=== PATIENT | male | born 1945 | race Caucasian/White ===

== ENCOUNTER 2019-09-11 18:36 | Emergency (ER) | payer OTHER, MEDICARE ==
--- NOTE | 2019-09-11 19:31 | EDM.PDOC ---
ED HPI GENERAL MEDICAL PROBLEM - General Chief Complaint: Syncope Stated Complaint: POSSIBLE STROKE Time Seen by Provider: 09/11/19 19:02 Source of Information: Reports: Patient, Family () History Limitations: Reports: Other (Patient weak, confused, poor historian. Most of hx per .) - History of Present Illness INITIAL COMMENTS - FREE TEXT/NARRATIVE: Mr. Tolbert is a pleasant 73-year-old gentleman with a past medical history significant for CHF with a 15-20% LVEF and atrial fibrillation, status-post 3 cardiac ablations and an AICD, on Coumadin and amiodarone, who now presents the ED after suffering a near-syncopal episode. The patient's tells me that the 2 of them attended a memorial service under a tent, lasting about 2 to [address] home, the patient's states that the patient appeared to start panting. She states that he sort of leaned forward with his mouth open, staring. The episode lasted about 30 seconds. He then recovered, but a short while later, he then slumped over, although she states that he did not appear to actually fully passed out, because he was wearing a seatbelt, he did not actually fall over. The patient states that he felt hot and dyspneic. He denies having felt any chest pain or palpitations. He did not feel an electric shock. No nausea or diaphoresis. No abdominal pain. No prior similar symptoms. Here in the ED, the patient's initial BP is found to be low at 86/64, otherwise, he is not tachycardic, he is afebrile, saturating 91% on room air. Other than today's event, the patient denies recent fever, chills, sore throat, ear pain, nasal or sinus congestion, cough, chest pain, palpitations, nausea, vomiting, constipation, diarrhea, abdominal pain, urinary symptoms, recent weight gain or weight loss, recent bloody bowel movements or black bowel movements, recent joint aches, headaches, or rashes. The patient's PCP is Dr. Dulce Marley at the [facility]. His Answerer is Dr. Ej Josue, at [facility]. His EP Answerer is Dr. Pako Roberts, at [facility]. Chest Pain Score (Numeric/FACES): 4 - Related Data Allergies Allergy/AdvReac Type Severity Reaction Status Date / Time No Known Allergies Allergy Verified 09/11/19 18:49 Home Meds: Home Meds Amiodarone [Cordarone] 400 mg PO DAILY 09/11/19 [History] Cholecalciferol (Vitamin D3) [Vitamin D3] 1 tab PO BID 09/11/19 [History] Digoxin 125 mcg PO DAILY 09/11/19 [History] Finasteride 5 mg PO DAILY 09/11/19 [History] Isosorbide Mononitrate [Imdur] 30 mg PO DAILY 09/11/19 [History] Metoprolol Tartrate 25 mg PO DAILY 09/11/19 [History] Multivitamin 1 tab PO DAILY 09/11/19 [History] Pantoprazole [ProTONIX] 40 mg PO DAILY 09/11/19 [History] Potassium Chloride 20 meq PO TID 09/11/19 [History] Torsemide 80 mg PO BID 09/11/19 [History] Warfarin [Coumadin] 2.5 mg PO ASDIRECTED 09/11/19 [History] Warfarin [Coumadin] 5 mg PO MOWEFR 09/11/19 [History] atorvaSTATin [Lipitor] 40 mg PO BEDTIME 09/11/19 [History] lisinopriL [Lisinopril] 5 mg PO DAILY 09/11/19 [History] metOLazone [Metolazone] 2.5 mg PO WEEKLY 09/11/19 [History] Past Medical History Cardiovascular History: Reports: Afib (chronic), Heart Failure (15-20% EVEF), Hypertension Gastrointestinal History: Reports: GERD Genitourinary History: Reports: BPH, Other (See Below) (Only one kidney functioning) Psychiatric History: Reports: Anxiety - Infectious Disease History Infectious Disease History: Reports: Chicken Pox, Measles, Mumps - Past Surgical History Cardiovascular Surgical History: Reports: AICD, Cardiac Ablation (x 3) Social & Family History - Family History Family Medical History: Noncontributory - Tobacco Use Smoking Status *Q: Current Every Day Smoker Years of Tobacco use: 54 Packs/Tins Daily: 0.2 Packs/Tins Daily Comment: Down from 04/27 ppd - Caffeine Use Caffeine Use: Reports: Coffee - Alcohol Use Alcohol Use History: Yes Alcohol Use Frequency: Socially - Recreational Drug Use Recreational Drug Use: No - Living Situation & Occupation Living situation: Reports: , with Spouse Occupation: Retired ED ROS GENERAL - Review of Systems Review Of Systems: Comprehensive ROS is negative, except as noted in HPI. ED EXAM, GENERAL - Physical Exam Exam: See Below Exam Limited By: No Limitations (cooperative with exam) General Appearance: Alert, No Apparent Distress, Thin Eye Exam: Bilateral Eye: EOMI, Normal Inspection Ears: Normal External Exam, Hearing Grossly Normal Nose: Normal Inspection Throat/Mouth: Normal Inspection, Normal Lips, Normal Voice, No Airway Compromise Head: Atraumatic, Normocephalic Neck: Normal Inspection, Full Range of Motion Respiratory/Chest: No Respiratory Distress, Lungs Clear, Normal Breath Sounds, No Accessory Muscle Use, Other (Prominent left chest AICD) Cardiovascular: Normal Peripheral Pulses, Regular Rate, Rhythm, No Edema, No Gallop, No JVD, No Murmur, No Rub Peripheral Pulses: 1+: Radial (L), Radial (R) GI/Abdominal: Normal Bowel Sounds, Soft, Non-Tender, No Organomegaly, No Distention, No Abnormal Bruit, No Mass (Male) Exam: Deferred Rectal (Males) Exam: Deferred Back Exam: Normal Inspection, Full Range of Motion, NT Extremities: Normal Inspection, Normal Range of Motion, No Pedal Edema, Normal Capillary Refill Neurological: Alert, Oriented, CN II-XII Intact, No Motor/Sensory Deficits, Confused (mild) Psychiatric: Normal Affect Skin Exam: Warm, Dry, Intact, Normal Color, No Rash EKG INTERPRETATION EKG Date: 09/11/19 Time: 18:46 Rhythm: Other (A-V dual paced) Rate (Beats/Min): 60 QT: Normal Comparison: NA - No Prior EKG Course - Vital Signs Last Recorded V/S: Last Vital Signs Temp 36.2 C 09/11/19 20:31 Pulse 86 09/11/19 22:24 Resp 16 09/11/19 22:24 BP 78/62 L 09/11/19 22:24 Pulse Ox 98 09/11/19 22:24 Orthostatic Blood Pressure [ 76/58 Standing] Orthostatic Blood Pressure [ 83/57 Supine] - Orders/Labs/Meds Labs: Laboratory Tests 09/11/19 09/11/19 09/11/19 Range/Units 19:00 19:00 19:00 WBC 7.68 (4.23-9.07) K/mm3 RBC 4.36 L (4.63-6.08) M/mm3 Hgb 14.1 (13.7-17.5) gm/dl Hct 42.3 (40.1-51.0) % MCV 97.0 H (79.0-92.2) fl MCH 32.3 H (25.7-32.2) pg MCHC 33.3 (32.2-35.5) g/dl RDW Std Deviation 51.4 H (35.1-43.9) fL Plt Count 210 (163-337) K/mm3 MPV 9.7 (9.4-12.3) fl Neutrophils % (Manual) 75 H (40-60) % Band Neutrophils % 0 (0-10) % Lymphocytes % (Manual) 21 (20-40) % Atypical Lymphs % 0 % Monocytes % (Manual) 2 (2-10) % Eosinophils % (Manual) 0 L (0.8-7.0) % Basophils % (Manual) 2 H (0.2-1.2) Platelet Estimate Adequate Anisocytosis 1+ slight Macrocytosis 1+ slight Ovalocytes 1+ slight RBC Morph Comment Not Reportable PT 38.6 H (9.7-12.0) SECONDS INR 3.82 Sodium 134 L (136-145) mEq/L Potassium 3.8 (3.5-5.1) mEq/L Chloride 94 L (98-107) mEq/L Carbon Dioxide 30 (21-32) mEq/L Anion Gap 13.8 (5-15) BUN 57 H (7-18) mg/dL Creatinine 2.8 H (0.7-1.3) mg/dL Est Cr Clr Drug Dosing 22.51 mL/min Estimated GFR (MDRD) 22 (>60) mL/min BUN/Creatinine Ratio 20.4 H (14-18) Glucose 179 H (83-115) mg/dL Lactic Acid (0.4-2.0) mmol/L Calcium 9.5 (8.5-10.1) mg/dL Magnesium 2.0 (1.8-2.4) mg/dl Total Bilirubin 1.2 H (0.2-1.0) mg/dL AST 20 (15-37) U/L ALT 34 (16-63) U/L Alkaline Phosphatase 186 H (46-116) U/L Troponin I 0.808 H* (0.00-0.056) ng/mL Total Protein 7.6 (6.4-8.2) g/dl Albumin 4.0 (3.4-5.0) g/dl Globulin 3.6 gm/dL Albumin/Globulin Ratio 1.1 (1-2) TSH 3rd Generation 3.533 (0.358-3.74) uIU/mL Urine Color (Yellow) Urine Appearance (Clear) Urine pH (5.0-8.0) Ur Specific [place] (1.005-1.030) Urine Protein (Negative) Urine Glucose (UA) (Negative) Urine Ketones (Negative) Urine Occult Blood (Negative) Urine Nitrite (Negative) Urine Bilirubin (Negative) Urine Urobilinogen (0.2-1.0) Ur Leukocyte Esterase (Negative) U Hyaline Cast (Auto) (0-5) /lpf Urine RBC (0-5) /hpf Urine WBC (0-5) /hpf Ur Squamous Epith Cells (0-5) /hpf Urine Bacteria (FEW) /hpf Urine Mucus (FEW) /hpf SARS Virus RNA (PCR) (NEGATIVE) 09/11/19 09/11/19 09/11/19 Range/Units 19:40 20:25 21:00 WBC (4.23-9.07) K/mm3 RBC (4.63-6.08) M/mm3 Hgb (13.7-17.5) gm/dl Hct (40.1-51.0) % MCV (79.0-92.2) fl MCH (25.7-32.2) pg MCHC (32.2-35.5) g/dl RDW Std Deviation (35.1-43.9) fL Plt Count (163-337) K/mm3 MPV (9.4-12.3) fl Neutrophils % (Manual) (40-60) % Band Neutrophils % (0-10) % Lymphocytes % (Manual) (20-40) % Atypical Lymphs % % Monocytes % (Manual) (2-10) % Eosinophils % (Manual) (0.8-7.0) % Basophils % (Manual) (0.2-1.2) Platelet Estimate Anisocytosis Macrocytosis Ovalocytes RBC Morph Comment PT (9.7-12.0) SECONDS INR Sodium (136-145) mEq/L Potassium (3.5-5.1) mEq/L Chloride (98-107) mEq/L Carbon Dioxide (21-32) mEq/L Anion Gap (5-15) BUN (7-18) mg/dL Creatinine (0.7-1.3) mg/dL Est Cr Clr Drug Dosing mL/min Estimated GFR (MDRD) (>60) mL/min BUN/Creatinine Ratio (14-18) Glucose (83-115) mg/dL Lactic Acid 1.6 (0.4-2.0) mmol/L Calcium (8.5-10.1) mg/dL Magnesium (1.8-2.4) mg/dl Total Bilirubin (0.2-1.0) mg/dL AST (15-37) U/L ALT (16-63) U/L Alkaline Phosphatase (46-116) U/L Troponin I 0.846 H* (0.00-0.056) ng/mL Total Protein (6.4-8.2) g/dl Albumin (3.4-5.0) g/dl Globulin gm/dL Albumin/Globulin Ratio (1-2) TSH 3rd Generation (0.358-3.74) uIU/mL Urine Color Yellow (Yellow) Urine Appearance Clear (Clear) Urine pH 5.5 (5.0-8.0) Ur Specific [place] 1.020 (1.005-1.030) Urine Protein Negative (Negative) Urine Glucose (UA) Negative (Negative) Urine Ketones Negative (Negative) Urine Occult Blood Negative (Negative) Urine Nitrite Negative (Negative) Urine Bilirubin 1+ H (Negative) Urine Urobilinogen 0.2 (0.2-1.0) Ur Leukocyte Esterase Trace H (Negative) U Hyaline Cast (Auto) 10-20 H (0-5) /lpf Urine RBC 0-5 (0-5) /hpf Urine WBC 0-5 (0-5) /hpf Ur Squamous Epith Cells 0-5 (0-5) /hpf Urine Bacteria Few (FEW) /hpf Urine Mucus Few (FEW) /hpf SARS Virus RNA (PCR) (NEGATIVE) 09/11/19 Range/Units 21:47 WBC (4.23-9.07) K/mm3 RBC (4.63-6.08) M/mm3 Hgb (13.7-17.5) gm/dl Hct (40.1-51.0) % MCV (79.0-92.2) fl MCH (25.7-32.2) pg MCHC (32.2-35.5) g/dl RDW Std Deviation (35.1-43.9) fL Plt Count (163-337) K/mm3 MPV (9.4-12.3) fl Neutrophils % (Manual) (40-60) % Band Neutrophils % (0-10) % Lymphocytes % (Manual) (20-40) % Atypical Lymphs % % Monocytes % (Manual) (2-10) % Eosinophils % (Manual) (0.8-7.0) % Basophils % (Manual) (0.2-1.2) Platelet Estimate Anisocytosis Macrocytosis Ovalocytes RBC Morph Comment PT (9.7-12.0) SECONDS INR Sodium (136-145) mEq/L Potassium (3.5-5.1) mEq/L Chloride (98-107) mEq/L Carbon Dioxide (21-32) mEq/L Anion Gap (5-15) BUN (7-18) mg/dL Creatinine (0.7-1.3) mg/dL Est Cr Clr Drug Dosing mL/min Estimated GFR (MDRD) (>60) mL/min BUN/Creatinine Ratio (14-18) Glucose (83-115) mg/dL Lactic Acid (0.4-2.0) mmol/L Calcium (8.5-10.1) mg/dL Magnesium (1.8-2.4) mg/dl Total Bilirubin (0.2-1.0) mg/dL AST (15-37) U/L ALT (16-63) U/L Alkaline Phosphatase (46-116) U/L Troponin I (0.00-0.056) ng/mL Total Protein (6.4-8.2) g/dl Albumin (3.4-5.0) g/dl Globulin gm/dL Albumin/Globulin Ratio (1-2) TSH 3rd Generation (0.358-3.74) uIU/mL Urine Color (Yellow) Urine Appearance (Clear) Urine pH (5.0-8.0) Ur Specific [place] (1.005-1.030) Urine Protein (Negative) Urine Glucose (UA) (Negative) Urine Ketones (Negative) Urine Occult Blood (Negative) Urine Nitrite (Negative) Urine Bilirubin (Negative) Urine Urobilinogen (0.2-1.0) Ur Leukocyte Esterase (Negative) U Hyaline Cast (Auto) (0-5) /lpf Urine RBC (0-5) /hpf Urine WBC (0-5) /hpf Ur Squamous Epith Cells (0-5) /hpf Urine Bacteria (FEW) /hpf Urine Mucus (FEW) /hpf SARS Virus RNA (PCR) Negative (NEGATIVE) Meds: Medications Discontinued Medications Generic Name Dose Route Start Last Admin Trade Name Freq PRN Reason Stop Dose Admin Ceftriaxone Sodium 1 gm/ 100 mls @ 200 mls/hr 09/11/19 20:23 09/11/19 20:39 Sodium Chloride IV 09/11/19 20:52 200 mls/hr ONETIME STA Administration Azithromycin 500 mg/ Sodium 250 mls @ 250 mls/hr 09/11/19 20:24 09/11/19 21:23 Chloride IV 09/11/19 21:23 250 mls/hr ONETIME STA Administration - Re-Assessments/Exams Free Text/Narrative Re-Assessment/Exam: 09/11/19 19:26 As above, the patient has a history of CHF with a 15 to 20% LVEF, therefore he is always generally weak, however, he appears to have suffered 1 or 2 near- syncopal episodes after attending a [facility] service this afternoon. Here in the ED, his initial BP is in the 80s, and while his tells me that his blood pressure is always relatively low, I doubt that it is typically in the 80s. His ECG, obtained at triage, demonstrates a A-V dual paced rhythm, and therefore is of no interpretive use. Clinically, I suspect that the patient is intravascularly depleted, since his lung sounds are grossly unremarkable, and his oxygen saturation is 91% on room air, but because of his history of CHF, I want to see a chest x-ray to make sure that he is not fluid overloaded before I give him a fluid bolus, therefore I have ordered a portable chest x-ray, along with a work-up that includes orthostatics, blood work, 2 sets of blood cultures, a urinalysis, and a test for the SARS-CoV-2 virus. 09/11/19 20:14 The patient is not orthostatic. Portable chest radiograph reviewed. The cardiac silhouette is at the upper limit of normal size. No pulmonary vascular congestion. No pleural effusions seen on this AP view. There appears to be a right lower lobe infiltrate, [place], there is no silhouette sign with either the right cardiac border or the diaphragm, so the etiology of this opacity is not entirely clear. No pneumothorax. Left sided AICD. Formal read per the Radiologist pending. Based on the above, I believe it would be prudent to treat the patient for pneumonia. I will start him on IV Rocephin and IV azithromycin. 09/11/19 20:30 The patient's CBC is unremarkable. His CMP is remarkable for a sodium slightly depressed at 134, and a BUN/Cr elevated at 57/2.8. His blood glucose is mildly elevated 179. His alkaline phosphatase is slightly elevated at 186, with the remainder of his CMP being unremarkable. His magnesium level is within normal limits at 2.0. His TSH is within normal limits at 3.533. His lactic acid level is within normal limits at 1.6. His troponin is elevated at 0.808. His INR is supratherapeutic at 3.82. The patient's urinalysis and test for the SARS-CoV-2 virus are still pending. It is unclear if the patient's elevated troponin is due to an acute cardiac event versus his renal insufficiency, therefore I will repeat the troponin after a couple of hours, to see if it is trending. 09/11/19 21:02 The patient's urinalysis demonstrates occult blood negative with 0-5 RBCs, trace leukocyte esterase with 0-5 WBCs, nitrate negative with few bacteria, and 0-5 squamous epithelial cells. 09/11/19 21:37 The patient's repeat troponin is elevated at 0.846. 09/11/19 21:57 Case discussed with Dmitriy at [facility] at 21:43. Case then discussed with Dr. Troncoso, Answerer on-call at [facility], at 21:47. She feels that the patient suffered a dysrhythmia, likely a nonsustained ventricular tachycardia, but not fast enough to require defibrillation. Perhaps the AICD paced him out of it. She is certain that the defibrillator did not fire, because he would have felt that. She stated that with the patient's degree of CHF and chronic renal insufficiency, we should expect an elevated troponin, and she is not concerned about it. She advised against giving IV fluid, despite his low blood pressure, given his low ejection fraction. She stated that the patient is likely used to running such low blood pressures. She recommended against continuing to treat for pneumonia, since the patient does not have a fever, cough, or elevated WBC count. She recommended discharge home, and she will contact the AICD device manager property on Friday, to have them remotely interrogate the AICD. She wanted me to remind the patient that if his condition worsens, to have him return to the ED. 09/11/19 22:14 Test results and my conversation with Dr. Troncoso discussed with the patient and his . The patient's daughter, a nurse, also called, and I discussed the case with her, as well. I will discharge the patient home with the recommendation that he not take his Coumadin tonight, then take only a half dose tomorrow, [facility] morning. The patient's mentioned that the patient is already scheduled to meet with his Cardiology team at [facility] on Friday. Lastly, the test for the SARS-CoV-2 virus has not yet returned; I will contact them if it returns positive. Departure - Departure Time of Disposition: 22:17 Disposition: Home, Self-Care 01 Condition: Good Clinical Impression: Near syncope, Supratherapeutic INR, Chronic renal insufficiency, CHF (congestive heart failure), NYHA class IV, Elevated troponin - Discharge Information *PRESCRIPTION DRUG MONITORING PROGRAM REVIEWED*: Not Applicable *COPY OF PRESCRIPTION DRUG MONITORING REPORT IN PATIENT MADHAVI: Not Applicable Instructions: Bleeding Precautions When on Anticoagulant Therapy, Pediatric, Near-Syncope, [id number], Heart Failure, Diagnosis, [id number], Chronic Kidney Disease, Adult Referrals: Ej Josue MD [Ordering Only Provider] - Pako Roberts [Ordering Only Provider] - Dulce Marley MD [Physician] - Forms: ED Department Discharge Additional Instructions: You were seen in the emergency room after having 2 short episodes of nearly passing out. Work-up in the ER included positional blood pressure checks, blood work, 2 sets of blood cultures, Allises, a chest x-ray, a test for the novel coronavirus, and an ECG. Your kidney function was found to be impaired with a BUN of 57 and a creatinine of 2.8. Your blood sugar was found to be mildly elevated at 179. Your initial troponin (heart enzyme) was found to be elevated at 0.808, with a repeat troponin 2 hours later elevated at 0.846. Your INR (Coumadin number) was found to be elevated at 3.82. Your chest x-ray found an opacity at the right base, but it is not clear that it is due to pneumonia. The remainder of your work-up was unremarkable. Your case was discussed with the Answerer Dr. Troncoso. She felt that you most likely suffered a ventricular arrhythmia, such as a nonsustained ventricular tachycardia that your pacemaker may have tried to pace you out of, but did not defibrillate. Because of your congestive heart failure and chronic kidney dysfunction, you should expect a chronically elevated troponin, and it does not indicate a recent heart injury. She feels that the opacity at your lower right lung is due to atelectasis, not pneumonia. We recommend that you not take your Coumadin tonight, then take a half dose tomorrow (09/12/2019). You should then contact your Coumadin manager icu at the [facility] on 09/13/2019. Dr. Troncoso will be contacting your AICD manager property on Friday. You should expect to be contacted by them in order to undergo a remote download of your AICD information. Follow-up with your cardiology team at [facility] as previously scheduled on 09/13/2019. If any other problems, including a recurrence of your symptoms, please do not hesitate to return to the ER, or go to the [facility] ER. Sepsis Event Note (ED) - Evaluation Sepsis Screening Result: No Definite Risk
[2019-09-11] MEDS ORDERED: cefTRIAXone 1 GM in Sodium Chloride 0.9% 100 ML IV STA (20:23)
[2019-09-11] MEDS ORDERED: Azithromycin 500 MG in Sodium Chloride 0.9% 250 ML IV STA (20:24)
--- NOTE | 2019-09-12 08:49 | CR ---
Chest: Portable view of the chest was obtained. Comparison: Prior chest x-ray is not available. Small bilateral pleural effusions are noted. Scarring or atelectasis is seen within the left lung base. Heart is mildly enlarged. Pulmonary vessels are slightly congested. AICD is present. Bony structures are grossly intact. Impression: 1. Findings suspicious for mild CHF. Diagnostic code #3 This report was dictated in MDT
== END 2019-09-11 22:39 | disposition home or self-care (01) ==
LOC: JD.ED 18:36
DX: R55 Syncope and collapse (principal); R79.1 Abnormal coagulation profile; R79.89 Other specified abnormal findings of blood chemistry; I13.0 Hypertensive heart and chronic kidney disease with heart failure and stage 1 through stage 4 chronic kidney disease, or unspecified chronic kidney disease; I50.9 Heart failure, unspecified; N18.9 Chronic kidney disease, unspecified; K21.9 Gastro-esophageal reflux disease without esophagitis; I48.91 Unspecified atrial fibrillation; F17.210 Nicotine dependence, cigarettes, uncomplicated; Z20.828 Contact with and (suspected) exposure to other viral communicable diseases; Z79.899 Other long term (current) drug therapy; Z79.01 Long term (current) use of anticoagulants
CPT/HCPCS: 36415; 71045; 80053; 81001; 83605; 83735; 84443; 84484; 85007; 85027; 85610; 87040; 87635; 93005; 96365; 96367; 99285; J0456; J0696; J7050; 93010; 99283; U0002